=== PATIENT | male | born 1945 | race Caucasian/White ===

== ENCOUNTER 2016-02-14 22:41 | Inpatient (IN) | payer OTHER ==
--- NOTE | 2016-02-14 23:17 | PROVIDER DOCUMENTATION ---
HPI-Cardiac General - General Source: patient - History of Present Illness-Cardiac Quality of Pain: reports: none Onset/Duration: this morning Timing: still present Context/Activities at Onset: reports: none Modifying Factors: improves with: nothing Palpitation Quality: fast/pounding heart beat History of arrythmia: reports: none Recent use of:: reports: no stimulants Nitro Today/Relief: reports: no nitro taken today Aspirin Treatment Today: reports: no aspirin today Prior Chest Pain/Cardiac Workup: reports: stress test Associated Symptoms: reports: denies symptoms Similar Symptoms Previously?: No Recently Seen Here or By Another Healthcare Provider: Yes <Julio C Castillo - Last Filed: 02/15/16 01:54> <Eliseo Epperson - Last Filed: 02/15/16 08:57> - General Chief Complaint: Palpitations Stated Complaint: HIGH BLOOD PRESSURE,RAPID HR Time Seen by Provider: 02/14/16 22:45 Allergies/Adverse Reactions: Patient Allergies Allergy/AdvReac Type Severity Reaction Status Date / Time No Known Allergies Allergy Verified 02/14/16 22:54 - History of Present Illness-Cardiac Nature of Presenting Problem: 70 y/o Wm presents to the ED with his heart racing since 10am this morning. Pt said he was at his desk when he felt it. He checked his BP at that time which was normal but his Heart rate was 138. This evening after getting home from [facility] he checked his pressure again and it was high this time with HR of 133 and decided he need to come to the ED. Pt denies any pain and is not SOB. ( Julio C Castillo) Review of Systems - Adult - REVIEW OF SYSTEMS - ADULT Constitutional: denies: chills, fever Eyes: reports: no symptoms reported Ears, Nose, Mouth & Throat: reports: no symptoms reported Cardiovascular: reports: edema, palpitations. denies: chest pain, orthopnea, syncope Respiratory: denies: chronic cough, shortness of breath, wheezing Gastrointestinal: denies: nausea, vomiting Genitourinary: reports: no symptoms reported Musculoskeletal: reports: no symptoms reported Integumentary: reports: no symptoms reported Neurological: reports: no symptoms reported Psychiatric: reports: no symptoms reported Endocrine: reports: no symptoms reported Hematologic/Lymphatic: reports: no symptoms reported Allergic/Immunologic: reports: no symptoms reported All Other Systems: Reviewed and Negative <Julio C Castillo - Last Filed: 02/15/16 01:54> Past History - Adult - PAST MEDICAL HISTORY-ADULT Review of Records: reports: Old Records Reviewed, Nursing Assessment Review, Medications Reviewed - SOCIAL HISTORY Smoking: non-smoker Substance Use: alcohol Alcohol Use Frequency: occasionally Living Situation: family Occupation: Retired <Julio C Castillo Last Filed: 02/15/16 01:54> Physical Exam-General - PHYSICAL EXAM-ADULT Initial Vital Signs Reviewed: Yes - CONSTITUTIONAL General Appearance: appears well, alert, no apparent distress - EYES Eyes: PERRL/EOMI, pink conjunctivae - HEAD, EARS, NOSE, MOUTH & THROAT HENMT: moist mucous membranes, normal ENT inspection, TMs normal, pharynx normal - NECK Neck: non-tender, full range of motion, supple - RESPIRATORY Respiratory: normal breath sounds, no pleuratic chest pain, no respiratory distress, no accessory muscle use - CARDIOVASCULAR Cardiovascular: normal peripheral pulses, tachycardia, gallop/S4 - GASTROINTESTINAL (ABDOMEN) Abdominal Exam: normal bowel sounds, non tender, soft - MUSCULOSKELETAL Back Exam: normal inspection, no CVA tenderness, no vertebral tenderness Extremity: normal range of motion, non-tender, normal gait, pedal edema (2+) - SKIN Integumentary: normal color, normal turgor, warm/dry - NEUROLOGIC Neurologic: grossly normal, no motor/sensory deficits - PSYCHIATRIC Psych/Mental Status: normal mood/affect, normal thought content, normal thought process, oriented x 3 <Julio C Castillo Last Filed: 02/15/16 01:54> Progress - EKG 1 Time of EKG reading by physician:: 01:32 EKG Read and Signed by:: Kam Garcia EKG Interpretation (*Must complete 3 of following elements*): Abnormal Rate: 132 Rhythm: Atrial flutter with 2:1 AV conduction QRS: RBB Comments: Inferior infarct, age undetermined, T wave abnormality, - CONSULTS/PCP/HOSPITALIST Notification #1 *Consult/PCP/Hospitalist*: Dr Silver Time Discussed: :54 Reason/Comments: plan of treatment Consult Disposition: other (treat with a cardizem drip) <Julio C Castillo Last Filed: 02/15/16 01:54> - REASSESSMENT Reassessment #1 Time Reassessed: 08:56 Status: improving (Pt is stable and admit to Dr. Griffiths) - CONSULTS/PCP/HOSPITALIST Notification Time Discussed: 08:57 Reason/Comments: Dr. Griffiths Consult Disposition: Admit <Eliseo Epperson X - Last Filed: 02/15/16 08:57> - PLAN OF CARE/RESULTS Progress/Plan/Lab Results: Orders Category Date Time Status CHEST-2 VIEWS [RAD] Stat Exams 02/14/16 23:01 Taken CBC WITH DIFF [HEME] Stat Lab 02/14/16 23:22 Completed CK PROFILE [SP CHEM] Stat Lab 02/14/16 23:22 Completed COMPREHENSIVE METABOLIC PANEL [CHEM] Stat Lab 02/14/16 23:22 Completed D-DIMER PL [COAG] Stat Lab 02/14/16 23:22 Completed PRO B-NATRIURETIC PEPTIDE Stat Lab 02/14/16 23:22 Completed TROPONIN T Stat Lab 02/14/16 23:22 Completed TSH Stat Lab 02/14/16 23:[address] W/POSS RFLX CULT [URINALYSIS] Stat Lab 02/14/16 23:22 Completed 0.9% Sodium Chloride Inj [Ns] 1,000 ml Med 02/15/16 00:53 Discontinued .ROUTE As Directed Metoprolol [Lopressor] Med 02/15/16 00:40 Discontinued 5 mg .ROUTE .STK-MED ONE Metoprolol [Lopressor] Med 02/15/16 00:02 Discontinued 5 mg IV NOW ONE Metoprolol [Lopressor] Med 02/15/16 00:02 Discontinued 5 mg IV NOW ONE EKG [EKG] Routine Ther 02/14/16 23:00 Draft Vital Signs Temp Pulse Resp BP Pulse Ox 02/15/16 01:11 98.4 F 120 H 20 117/78 100 02/14/16 22:55 134 H 20 148/109 99 No Known Allergies Allergy (Verified 02/14/16 22:54) Laboratory 02/14/16 02/14/16 02/14/16 23:22 23:22 23:22 WBC 6.97 RBC 4.52 L Hgb 14.1 Hct 42.5 MCV 94.0 MCH 31.2 H MCHC 33.2 RDW Std Deviation 13.3 Plt Count 172 MPV 11.6 H Immature Gran % (Auto) 0.3 Neut % (Auto) 56.5 Lymph % (Auto) 25.4 Borden % (Auto) 14.1 H Eos % (Auto) 3.4 Baso % (Auto) 0.3 Immature Gran # (Auto) 0.02 Neut # (Auto) 3.94 Lymph # (Auto) 1.77 Borden # (Auto) 0.98 H Eos # (Auto) 0.24 Baso # (Auto) 0.02 D-Dimer 0.40 Sodium Potassium Chloride Carbon Dioxide Anion Gap BUN Creatinine Estimated GFR/1.73 m2 BUN/Creatinine Ratio Glucose Calculated Osmolality Calcium Total Bilirubin AST ALT Alkaline Phosphatase Creatine Kinase Troponin T Cys-Q-Ftvtkpuneql Pept Total Protein Albumin Globulin Albumin/Globulin Ratio TSH Urine Source CLEAN CATCH Urine Color YELLOW Urine Clarity CLEAR Urine pH 5.0 Ur Specific Carpenter 1.015 Urine Protein 1+(30 mg/dL) A Urine Ketones NEGATIVE Urine Blood NEGATIVE Urine Nitrite NEGATIVE Urine Bilirubin NEGATIVE Urine Urobilinogen NORMAL Urine Microscopic RBC <10 Urine WBC NEGATIVE Urine Microscopic WBC <10 Ur Epithelial Cells <10 Urine Bacteria NEGATIVE Urine Glucose NEGATIVE 02/14/16 02/14/16 02/14/16 23:22 23:22 23:22 WBC RBC Hgb Hct MCV MCH MCHC RDW Std Deviation Plt Count MPV Immature Gran % (Auto) Neut % (Auto) Lymph % (Auto) Borden % (Auto) Eos % (Auto) Baso % (Auto) Immature Gran # (Auto) Neut # (Auto) Lymph # (Auto) Borden # (Auto) Eos # (Auto) Baso # (Auto) D-Dimer Sodium Potassium Chloride Carbon Dioxide Anion Gap BUN Creatinine Estimated GFR/1.73 m2 BUN/Creatinine Ratio Glucose Calculated Osmolality Calcium Total Bilirubin AST ALT Alkaline Phosphatase Creatine Kinase Troponin T < 0.010 Sei-E-Theezjdmzzo Pept 913 H Total Protein Albumin Globulin Albumin/Globulin Ratio TSH 3.24 Urine Source Urine Color Urine Clarity Urine pH Ur Specific Carpenter Urine Protein Urine Ketones Urine Blood Urine Nitrite Urine Bilirubin Urine Urobilinogen Urine Microscopic RBC Urine WBC Urine Microscopic WBC Ur Epithelial Cells Urine Bacteria Urine Glucose 02/14/16 23:22 WBC RBC Hgb Hct MCV MCH MCHC RDW Std Deviation Plt Count MPV Immature Gran % (Auto) Neut % (Auto) Lymph % (Auto) Borden % (Auto) Eos % (Auto) Baso % (Auto) Immature Gran # (Auto) Neut # (Auto) Lymph # (Auto) Borden # (Auto) Eos # (Auto) Baso # (Auto) D-Dimer Sodium 139 Potassium 3.8 Chloride 102 Carbon Dioxide 27 Anion Gap 10 BUN 13 Creatinine 1.1 Estimated GFR/1.73 m2 > 60 BUN/Creatinine Ratio 12 Glucose 98 Calculated Osmolality 278 Calcium 9.0 Total Bilirubin 0.30 AST 18 ALT 14 Alkaline Phosphatase 100 Creatine Kinase 70 Troponin T Dit-U-Wffvimjrdni Pept Total Protein 7.6 Albumin 4.5 Globulin 3.0 Albumin/Globulin Ratio 1.0 TSH Urine Source Urine Color Urine Clarity Urine pH Ur Specific Carpenter Urine Protein Urine Ketones Urine Blood Urine Nitrite Urine Bilirubin Urine Urobilinogen Urine Microscopic RBC Urine WBC Urine Microscopic WBC Ur Epithelial Cells Urine Bacteria Urine Glucose (Julio C Castillo) Abnormal Lab Results 02/14/16 02/14/16 02/14/16 23:22 23:22 23:22 WBC RBC Hgb Hct MCV MCH MCHC RDW Std Deviation Plt Count MPV Immature Gran % (Auto) Neut % (Auto) Lymph % (Auto) Borden % (Auto) Eos % (Auto) Baso % (Auto) Immature Gran # (Auto) Neut # (Auto) Lymph # (Auto) Borden # (Auto) Eos # (Auto) Baso # (Auto) D-Dimer Sodium 139 Potassium 3.8 Chloride 102 Carbon Dioxide 27 Anion Gap 10 BUN 13 Creatinine 1.1 Estimated GFR/1.73 m2 > 60 BUN/Creatinine Ratio 12 Glucose 98 Calculated Osmolality 278 Calcium 9.0 Total Bilirubin 0.30 AST 18 ALT 14 Alkaline Phosphatase 100 Creatine Kinase 70 Troponin T < 0.010 Kxc-R-Awzmwiirtfz Pept 913 H Total Protein 7.6 Albumin 4.5 Globulin 3.0 Albumin/Globulin Ratio 1.0 TSH Urine Source Urine Color Urine Clarity Urine pH Ur Specific Carpenter Urine Protein Urine Ketones Urine Blood Urine Nitrite Urine Bilirubin Urine Urobilinogen Urine Microscopic RBC Urine WBC Urine Microscopic WBC Ur Epithelial Cells Urine Bacteria Urine Glucose 02/14/16 02/14/16 02/14/16 23:22 23:22 23:22 WBC 6.97 RBC 4.52 L Hgb 14.1 Hct 42.5 MCV 94.0 MCH 31.2 H MCHC 33.2 RDW Std Deviation 13.3 Plt Count 172 MPV 11.6 H Immature Gran % (Auto) 0.3 Neut % (Auto) 56.5 Lymph % (Auto) 25.4 Borden % (Auto) 14.1 H Eos % (Auto) 3.4 Baso % (Auto) 0.3 Immature Gran # (Auto) 0.02 Neut # (Auto) 3.94 Lymph # (Auto) 1.77 Borden # (Auto) 0.98 H Eos # (Auto) 0.24 Baso # (Auto) 0.02 D-Dimer 0.40 Sodium Potassium Chloride Carbon Dioxide Anion Gap BUN Creatinine Estimated GFR/1.73 m2 BUN/Creatinine Ratio Glucose Calculated Osmolality Calcium Total Bilirubin AST ALT Alkaline Phosphatase Creatine Kinase Troponin T Ozw-X-Dbfaookekix Pept Total Protein Albumin Globulin Albumin/Globulin Ratio TSH 3.24 Urine Source Urine Color Urine Clarity Urine pH Ur Specific Carpenter Urine Protein Urine Ketones Urine Blood Urine Nitrite Urine Bilirubin Urine Urobilinogen Urine Microscopic RBC Urine WBC Urine Microscopic WBC Ur Epithelial Cells Urine Bacteria Urine Glucose 02/14/16 23:22 WBC RBC Hgb Hct MCV MCH MCHC RDW Std Deviation Plt Count MPV Immature Gran % (Auto) Neut % (Auto) Lymph % (Auto) Borden % (Auto) Eos % (Auto) Baso % (Auto) Immature Gran # (Auto) Neut # (Auto) Lymph # (Auto) Borden # (Auto) Eos # (Auto) Baso # (Auto) D-Dimer Sodium Potassium Chloride Carbon Dioxide Anion Gap BUN Creatinine Estimated GFR/1.73 m2 BUN/Creatinine Ratio Glucose Calculated Osmolality Calcium Total Bilirubin AST ALT Alkaline Phosphatase Creatine Kinase Troponin T Heu-I-Ulxinaicfso Pept Total Protein Albumin Globulin Albumin/Globulin Ratio TSH Urine Source CLEAN CATCH Urine Color YELLOW Urine Clarity CLEAR Urine pH 5.0 Ur Specific Carpenter 1.015 Urine Protein 1+(30 mg/dL) A Urine Ketones NEGATIVE Urine Blood NEGATIVE Urine Nitrite NEGATIVE Urine Bilirubin NEGATIVE Urine Urobilinogen NORMAL Urine Microscopic RBC <10 Urine WBC NEGATIVE Urine Microscopic WBC <10 Ur Epithelial Cells <10 Urine Bacteria NEGATIVE Urine Glucose NEGATIVE Orders Category Date Time Status CHEST-2 VIEWS [RAD] Stat Exams 02/14/16 23:01 Taken CBC WITH DIFF [HEME] Stat Lab 02/14/16 23:22 Completed CK PROFILE [SP CHEM] Stat Lab 02/14/16 23:22 Completed COMPREHENSIVE METABOLIC PANEL [CHEM] Stat Lab 02/14/16 23:22 Completed D-DIMER PL [COAG] Stat Lab 02/14/16 23:22 Completed PRO B-NATRIURETIC PEPTIDE Stat Lab 02/14/16 23:22 Completed TROPONIN T Stat Lab 02/14/16 23:22 Completed TSH Stat Lab 02/14/16 23:[address] W/POSS RFLX CULT [URINALYSIS] Stat Lab 02/14/16 23:22 Completed 0.9% Sodium Chloride Inj [Ns] 1,000 ml Med 02/15/16 00:53 Discontinued .ROUTE As Directed 0.9% Sodium Chloride Inj [Ns] 500 ml Med 02/15/16 05:49 Discontinued .ROUTE As Directed Diltiazem 100 mg/Ns [Cardizem 100 mg/Ns] 100 ml Med 02/15/16 06:15 Active IV 5 mg/hr Diltiazem 100 mg/Ns [Cardizem 100 mg/Ns] 100 ml Med 02/15/16 03:15 Discontinued IV Per Protocol Diltiazem [Cardizem] Med 02/15/16 03:08 Discontinued 10 mg IV NOW ONE Metoprolol [Lopressor] Med 02/15/16 00:40 Discontinued 5 mg .ROUTE .STK-MED ONE Metoprolol [Lopressor] Med 02/15/16 00:02 Discontinued 5 mg IV NOW ONE Metoprolol [Lopressor] Med 02/15/16 00:02 Discontinued 5 mg IV NOW ONE EKG [EKG] Routine Ther 02/14/16 23:00 Draft Vital Signs Temp Pulse Resp BP Pulse Ox 02/15/16 07:14 71 17 125/68 96 02/15/16 06:28 90 19 137/95 96 02/15/16 05:05 94 H 21 123/98 96 02/15/16 04:53 65 16 117/67 96 02/15/16 03:19 94 H 18 142/108 98 02/15/16 01:11 98.4 F 120 H 20 117/78 100 02/14/16 22:55 134 H 20 148/109 99 No Known Allergies Allergy (Verified 02/14/16 22:54) Laboratory 02/14/16 02/14/16 02/14/16 23:22 23:22 23:22 WBC 6.97 RBC 4.52 L Hgb 14.1 Hct 42.5 MCV 94.0 MCH 31.2 H MCHC 33.2 RDW Std Deviation 13.3 Plt Count 172 MPV 11.6 H Immature Gran % (Auto) 0.3 Neut % (Auto) 56.5 Lymph % (Auto) 25.4 Borden % (Auto) 14.1 H Eos % (Auto) 3.4 Baso % (Auto) 0.3 Immature Gran # (Auto) 0.02 Neut # (Auto) 3.94 Lymph # (Auto) 1.77 Borden # (Auto) 0.98 H Eos # (Auto) 0.24 Baso # (Auto) 0.02 D-Dimer 0.40 Sodium Potassium Chloride Carbon Dioxide Anion Gap BUN Creatinine Estimated GFR/1.73 m2 BUN/Creatinine Ratio Glucose Calculated Osmolality Calcium Total Bilirubin AST ALT Alkaline Phosphatase Creatine Kinase Troponin T Qfn-W-Xtvleokqgvz Pept Total Protein Albumin Globulin Albumin/Globulin Ratio TSH Urine Source CLEAN CATCH Urine Color YELLOW Urine Clarity CLEAR Urine pH 5.0 Ur Specific Carpenter 1.015 Urine Protein 1+(30 mg/dL) A Urine Ketones NEGATIVE Urine Blood NEGATIVE Urine Nitrite NEGATIVE Urine Bilirubin NEGATIVE Urine Urobilinogen NORMAL Urine Microscopic RBC <10 Urine WBC NEGATIVE Urine Microscopic WBC <10 Ur Epithelial Cells <10 Urine Bacteria NEGATIVE Urine Glucose NEGATIVE 02/14/16 02/14/16 02/14/16 23:22 23:22 23:22 WBC RBC Hgb Hct MCV MCH MCHC RDW Std Deviation Plt Count MPV Immature Gran % (Auto) Neut % (Auto) Lymph % (Auto) Borden % (Auto) Eos % (Auto) Baso % (Auto) Immature Gran # (Auto) Neut # (Auto) Lymph # (Auto) Borden # (Auto) Eos # (Auto) Baso # (Auto) D-Dimer Sodium Potassium Chloride Carbon Dioxide Anion Gap BUN Creatinine Estimated GFR/1.73 m2 BUN/Creatinine Ratio Glucose Calculated Osmolality Calcium Total Bilirubin AST ALT Alkaline Phosphatase Creatine Kinase Troponin T < 0.010 Kms-H-Vvpbmxendrk Pept 913 H Total Protein Albumin Globulin Albumin/Globulin Ratio TSH 3.24 Urine Source Urine Color Urine Clarity Urine pH Ur Specific Carpenter Urine Protein Urine Ketones Urine Blood Urine Nitrite Urine Bilirubin Urine Urobilinogen Urine Microscopic RBC Urine WBC Urine Microscopic WBC Ur Epithelial Cells Urine Bacteria Urine Glucose 02/14/16 23:22 WBC RBC Hgb Hct MCV MCH MCHC RDW Std Deviation Plt Count MPV Immature Gran % (Auto) Neut % (Auto) Lymph % (Auto) Borden % (Auto) Eos % (Auto) Baso % (Auto) Immature Gran # (Auto) Neut # (Auto) Lymph # (Auto) Borden # (Auto) Eos # (Auto) Baso # (Auto) D-Dimer Sodium 139 Potassium 3.8 Chloride 102 Carbon Dioxide 27 Anion Gap 10 BUN 13 Creatinine 1.1 Estimated GFR/1.73 m2 > 60 BUN/Creatinine Ratio 12 Glucose 98 Calculated Osmolality 278 Calcium 9.0 Total Bilirubin 0.30 AST 18 ALT 14 Alkaline Phosphatase 100 Creatine Kinase 70 Troponin T Nev-S-Vsmujxfusht Pept Total Protein 7.6 Albumin 4.5 Globulin 3.0 Albumin/Globulin Ratio 1.0 TSH Urine Source Urine Color Urine Clarity Urine pH Ur Specific Carpenter Urine Protein Urine Ketones Urine Blood Urine Nitrite Urine Bilirubin Urine Urobilinogen Urine Microscopic RBC Urine WBC Urine Microscopic WBC Ur Epithelial Cells Urine Bacteria Urine Glucose Orders Category Date Time Status CHEST-2 VIEWS [RAD] Stat Exams 02/14/16 23:01 Taken CBC WITH DIFF [HEME] Stat Lab 02/14/16 23:22 Completed CK PROFILE [SP CHEM] Stat Lab 02/14/16 23:22 Completed COMPREHENSIVE METABOLIC PANEL [CHEM] Stat Lab 02/14/16 23:22 Completed D-DIMER PL [COAG] Stat Lab 02/14/16 23:22 Completed PRO B-NATRIURETIC PEPTIDE Stat Lab 02/14/16 23:22 Completed TROPONIN T Stat Lab 02/14/16 23:22 Completed TSH Stat Lab 02/14/16 23:[address] W/POSS RFLX CULT [URINALYSIS] Stat Lab 02/14/16 23:22 Completed 0.9% Sodium Chloride Inj [Ns] 1,000 ml Med 02/15/16 00:53 Discontinued .ROUTE As Directed 0.9% Sodium Chloride Inj [Ns] 500 ml Med 02/15/16 05:49 Discontinued .ROUTE As Directed Diltiazem 100 mg/Ns [Cardizem 100 mg/Ns] 100 ml Med 02/15/16 06:15 Active IV 5 mg/hr Diltiazem 100 mg/Ns [Cardizem 100 mg/Ns] 100 ml Med 02/15/16 03:15 Discontinued IV Per Protocol Diltiazem [Cardizem] Med 02/15/16 03:08 Discontinued 10 mg IV NOW ONE Metoprolol [Lopressor] Med 02/15/16 00:40 Discontinued 5 mg .ROUTE .STK-MED ONE Metoprolol [Lopressor] Med 02/15/16 00:02 Discontinued 5 mg IV NOW ONE Metoprolol [Lopressor] Med 02/15/16 00:02 Discontinued 5 mg IV NOW ONE EKG [EKG] Routine Ther 02/14/16 23:00 Draft (Eliseo Epperson) Departure - Departure Time of Disposition Order: 01:56 Certified Medical Emergency: Emergent <Julio C Castillo - Last Filed: 02/15/16 01:54> - Departure Time of Disposition Order: 08:57 Certified Medical Emergency: Emergent <Eliseo Epperson - Last Filed: 02/15/16 08:57> - Departure DIAGNOSIS: Atrial flutter Qualifiers: Atrial flutter type: unspecified Qualified Code(s): I48.92 - Unspecified atrial flutter Disposition: ADMITTED INPATIENT 09 Condition: Stable Referrals: Shravan Dozier MD [Primary Care Provider] - Attestation - Scribe Verification/Attestation Scribe:: Julio C Castillo Acting as Scribe for:: Kam Garcia Scribe documention review:: This chart was documented by a scribe and accurately reflects the service the provider performed and the decisions made by the provider. <Julio C Castillo - Last Filed: 02/15/16 01:54> Physician Attestation
[2016-02-14 23:29] LABS: MANUAL DIFF NEEDED? NO
--- NOTE | 2016-02-14 23:41 | EKG Report ---
Test Performed on : 02/14/2016 11:20:46 PM Test Reason : emboli Blood Pressure : / mmHG Vent. Rate : 132 BPM Atrial Rate : 264 BPM P-R Int : 000 ms QRS Dur : 134 ms QT Int : 306 ms P-R-T Axes : 247 -13 -82 degrees QTc Int : 453 ms Atrial flutter. with 2:1 AV conduction. Right bundle branch block Inferior infarct , age undetermined T wave abnormality, consider lateral ischemia Abnormal ECG No previous ECGs available Unconfirmed Result
[2016-02-14 23:42] LABS: URINE CULTURE PL NEEDED? NO; URINE SOURCE CLEAN CATCH
[2016-02-15] MEDS ORDERED: LOPRESSOR IV ONE ×2 (00:02)
[2016-02-15 00:03] LABS: BILIRUBIN URINE NEGATIVE (NEGATIVE); CLARITY CLEAR (CLEAR); COLOR YELLOW; GLUCOSE URINE NEGATIVE (NEGATIVE); URINE EPITHELIAL CELLS <10 /HPF (<10); URINE RBC <10 /HPF (<10); URINE WBC <10 /HPF (<10)
[2016-02-15 00:04] LABS: BLOOD URINE NEGATIVE (NEGATIVE); LEUKOCYTES URINE NEGATIVE (NEGATIVE); NITRITE URINE NEGATIVE (NEGATIVE); PROTEIN URINE 1+(30 mg/dL) mg/dL (NEGATIVE); SP GRAVITY URINE 1.015; UROBILINOGEN URINE NORMAL
[2016-02-15 00:09] LABS: BASO% 0.3 % (0.0-0.8); EOS# 0.24 X1000 (0.0-0.7); EOS% 3.4 % (0.0-10.0); HEMATOCRIT 42.5 % (42.0-52.0); HEMOGLOBIN 14.1 g/dL (14.0-18.0); IMM GRAN# 0.02 X1000 (0.0-0.04); IMM GRAN% 0.3 % (0.0-0.5); LYMPH# 1.77 X1000 (1.2-3.4); LYMPH% 25.4 % (20.5-51.1); MCH 31.2 PG (27-31); MCHC 33.2 g/dL (33-37); MONO# 0.98 X1000 (0.11-0.59); MONO% 14.1 % (1.7-9.3); MPV 11.6 FL (7.4-10.4); NEUT% 56.5 % (42.2-75.2); PLT 172 X1000 (130-400); RBC 4.52 XMIL (4.7-6.1)
[2016-02-15 00:23] LABS: AGAP 10; ALBUMIN 4.5 g/dL (3.5-5.0); ALKALINE PHOSPHATASE 100 U/L (32-122); BUN 13 mg/dL (8-22); CHLORIDE 102 mmol/L (98-107); CK PROFILE 70 U/L (24-204); COSMO 278; GOT 18 U/L (10-34); GPT 14 U/L (10-44); POTASSIUM 3.8 mmol/L (3.5-5.1); SODIUM 139 mmol/L (136-145); TCO2 27 mmol/L (25-35); TOTAL PROTEIN 7.6 g/dL (6.3-8.3)
[2016-02-15] MEDS ORDERED: LOPRESSOR ONE (00:40)
[2016-02-15] MEDS ORDERED: NS 1,000 ML ONE (00:53)
[2016-02-15] MEDS ORDERED: CARDIZEM IV ONE (03:08)
[2016-02-15] MEDS ORDERED: CARDIZEM 100 MG/NS 100 ML IV SCH ×2 (03:15→06:15)
[2016-02-15] MEDS ORDERED: NS 500 ML ONE (05:49)
--- NOTE | 2016-02-15 09:34 | Diag Imaging Result Document ---
PROCEDURE NAME: CHEST-2 VIEWS - 02/14/2016 CHEST X-RAY, 2 VIEWS: COMPARISON: None. FINDINGS: There is hyperexpansion of the lungs with flattening of the diaphragms compatible with COPD. There are CABG changes. Heart size is top normal. Pulmonary vascularity is normal. No focal infiltrates, pneumothorax, or pleural effusion. IMPRESSION: COPD. No acute disease.
[2016-02-15] MEDS ORDERED: FLUZONE QUAD 2016-2017 SYRINGE IM ONE (15:30)
[2016-02-15] MEDS: CARDIZEM 100 MG/NS 100 ML IV SCH (20:52)
[2016-02-16] MEDS: CARDIZEM 100 MG/NS 100 ML IV SCH ×2 (04:33→11:53)
[2016-02-16 06:29] LABS: HEMATOCRIT 40.1 % (42.0-52.0); HEMOGLOBIN 13.2 g/dL (14.0-18.0); MCH 31.1 PG (27-31); MCHC 32.9 g/dL (33-37); MCV 94.6 FL (81-99); MPV 11.1 FL (7.4-10.4); RBC 4.24 XMIL (4.7-6.1)
[2016-02-16 07:06] LABS: AGAP 5; ALBUMIN 3.8 g/dL (3.5-5.0); ALKALINE PHOSPHATASE 77 U/L (32-122); BUN 17 mg/dL (8-22); CALCIUM 8.9 mg/dL (8.8-10.2); CHLORIDE 106 mmol/L (98-107); COSMO 280; GOT 17 U/L (10-34); GPT 11 U/L (10-44); HDL 19 mg/dL (35-55); LDL 97 mg/dL; MAGNESIUM 1.9 mg/dL (1.5-2.7); POTASSIUM 4.2 mmol/L (3.5-5.1); SODIUM 139 mmol/L (136-145); TCO2 28 mmol/L (25-35); TOTAL PROTEIN 6.7 g/dL (6.3-8.3); TRIGLYCERIDES 201 mg/dL (39-160); VLDL 40 mg/dL
--- NOTE | 2016-02-16 12:02 | PROGRESS NOTE ---
DATE: 02/16/2016 SUBJECTIVE: The patient states he feels fine, he slept well. Denies any chest pain. Does have palpitations, but denies any dysuria on exertion. Denies any GI or issues. OBJECTIVE: Vital Signs: On physical examination, temperature 98.0 degrees, pulse 108-134, respiratory 18, BP 111/66 to 96/68, satting 94% on room air. General: The patient is well developed, well nourished. Currently in no respiratory distress. He is awake, alert, oriented. Neck: Supple. CV: Irregular rate and irregular rhythm. HEENT: Normocephalic, atraumatic. Chest: Relatively clear. Abdomen: Soft, nondistended. Extremities: Moves all extremities. Neurologic: No changes. LABS: Reviewed. The LDL at 97. First 2 sets of cardiac enzymes are negative. CMP is normal. CBC is normal. ASSESSMENT: 1. Atrial fibrillation with rapid ventricular response. 2. Known coronary artery disease. Patient had a 5-vessel bypass some years ago. He has not had a stress test recently. PLAN: We will continue patient on Cardizem IV. We will consult cardiology as patient certainly will need further workup.
[2016-02-16] MEDS ORDERED: ELIQUIS PO SCH (13:00)
--- NOTE | 2016-02-16 13:24 | CONSULTATION ---
DATE OF CONSULTATION: 02/16/2016 REASON FOR CONSULTATION: Cardiology was consulted for atrial flutter. HISTORY OF PRESENT ILLNESS: Mr. Sam Vital is a 70-year-old gentleman, who had palpitations a couple of days back, came to the emergency room, was noted to be in atrial flutter with rapid ventricular rate. He was started on a Cardizem drip. The patient prior to this has not had atrial flutter. He does not complain of having chest pain suggestive of angina. There is no dizziness or syncope. He has known coronary artery disease, status post coronary artery bypass grafting in [place] in 2002. He is normally followed up at the [facility] in [place], [place] 2 years back. He had a stress test and echocardiogram done there, which per patient were normal, and he has been taking his medications regularly. There is no orthopnea or paroxysmal nocturnal dyspnea. He has dyspnea on exertion, which is at best mild. REVIEW OF SYSTEMS: General: A 14-point review of system was done. GI System : There is no history of nausea, vomiting, diarrhea. There is no history of melena. Central nervous system: No focal weakness to suggest a CVATI. System: There is no dysuria or hematuria. PAST MEDICAL HISTORY: 1. Coronary artery disease, status post coronary artery bypass grafting at [place] in 2002. 2. Hypertension. 3. Hypertriglyceridemia. HOME MEDICATIONS: 1. Lisinopril 40. 2. Aspirin. 3. Gemfibrozil which he does not take. HABITS: He does not smoke. There is no history of alcohol abuse. PHYSICAL EXAMINATION: Vital Signs: Blood pressure was 120/77. Cardiovascular System: Normal jugular venous pressure. There is no thyromegaly. No carotid bruit. First and second heart sounds heard. There is no S3 gallop. Respiratory System: Normal air entry. There are no crepitations or rhonchi. Abdomen: Soft, nontender. There was no guarding or rigidity. Bowel sounds were heard. Central nervous system: Alert and was moving all 4 extremities. Extremities: Examination of extremities revealed no pedal edema. HEENT: Atraumatic, normocephalic. Pupils were equal and reacting to light. DIAGNOSTIC EXAMINATION: Electrocardiogram done today: He is on a Cardizem drip , revealed atrial flutter. Chest x-ray with no acute airspace disease. LABORATORY EXAMINATION: Revealed sodium 139, potassium 4.2, BUN 17, creatinine 1.1. Magnesium 1.9. Cardiac enzyme negative. ProBNP 913. Hemoglobin 13, hematocrit 40, platelet count of 163, white count 173. ASSESSMENT: Mr. Sam Vital is a 70-year-old gentleman, admitted with atrial flutter. His rate is under control with Cardizem oral. He has had a coronary artery bypass grafting in 2002 and has history of hypertension. He has elevated CHADS-VASc score. He is allergic to IVP dye and shellfish allergies. He is allergic to penicillin as well.He has had CABG and hypertension. Echocardiogram revelaed a dilated lv with EF 30 %. PLAN: 1. We will discontinue the Cardizem drip and put him on Cardizem CD 180 mg a day. Discontinue atenolol 25 and start coreg 6.25 mg BID. Given His LV dysfunction and hypertension will decarese his lisinopril to 20 mg as we are adding cardizem for atrial flutter. If his rate is under control, we will discharge him home in the morning and plan for out patient cardioversion and Evaluate with a stress test as well to Assess for ischemia. His stated that the stress test and LV function were unremarkable 2 years ago , which were done in [place]. She is aware of the Lv dysfuntion we noted today. We will request records. 2. For stroke prophylaxis, we will start him on Eliquis 5 mg twice daily. 3, For hypertension, blood pressure is under control. I have made made changes to his medication as above 6. He does not take his gemfibrozil regularly; I would advise him to continue with this medication. 7. He takes niacin and ranitidine for GERD. I have not made any changes. Thank you for the consult. We will follow hospital course. [facility] HOSPITALSpeedy
[2016-02-16] MEDS: CARDIZEM CD PO SCH (14:45)
--- NOTE | 2016-02-16 16:07 | ECHO REPORT ---
ORDER DATE: 02/16/2016 INTERPRETING PHYSICIAN: Dr. Timothy Rodriguez ECHOCARDIOGRAPHIC MEASUREMENTS: Interventricular septum: 1.0 cm. Left ventricular posterior wall: 1.0 cm. Diastolic diameter: 6 cm. Left atrium: 4.4 cm. Aortic root: 3.8 cm. SUMMARY OF THE 2-DIMENSIONAL IMAGIN. Dilated left ventricle with reduced systolic function. Estimated ejection fraction of 30%. There is global hypokinesis. The ejection fraction of 35% in some views. 2. Pulmonic valve was normal. There is trace pulmonary regurgitation. 3. Aortic valve leaflets are trileaflet. There is left atrial enlargement. 4. Peak velocity across the aortic valve less than 2 m/sec. There is no aortic stenosis or regurgitation. 5. There is mild mitral regurgitation. Mild tricuspid regurgitation. Peak velocity across the tricuspid valve was 2.5 m/sec. 6. There is no pericardial effusion or obvious intracardiac mass or thrombus seen. Atrial flutter baseline was noted.
--- NOTE | 2016-02-16 16:56 | HISTORY AND PHYSICAL ---
PRIMARY CARE PHYSICIAN: Shravan Dozier MD. CHIEF COMPLAINT: Racing heart rate that began around 10 a.m. on the morning of arrival. HISTORY OF PRESENTING ILLNESS: This is a 70-year-old male, who states he was sitting at his desk at work around 10 a.m. yesterday morning when he began feeling his heart race. Stated that he took his blood pressure and it was normal at the time but his heart rate was 138. That evening after getting home from [employer], he checked his pressure again and it was high, but unsure of what the reading was with a heart rate of 133. So he came into the emergency room for further evaluation and treatment. He was noted on arrival on his EKG to have atrial flutter at 132. Laboratory data was otherwise unremarkable. He was given a 10 mg IV of Cardizem x1 in the emergency room with little change in his heart rate, so he was admitted to the intensive care unit, placed on a Cardizem drip for further evaluation and treatment. PAST MEDICAL HISTORY: Coronary artery disease, hypertension, and hypertriglyceridemia. PAST SURGICAL HISTORY: CABG, 5 vessel in 2002. FAMILY HISTORY: Noncontributory. SOCIAL HISTORY: He currently lives with family. Denied any tobacco. States he drinks alcohol occasionally and no illicit drug use. ALLERGIES: To shellfish and penicillin. HOME MEDICATIONS: He takes cyclobenzaprine 5 mg p.o. t.i.d. p.r.n. Lisinopril 40 mg p.o. daily is being held, atenolol 25 mg p.o. daily, Lasix 20 mg p.o. daily. Niacin 2000 mg p.o. at bedtime, and Zantac 300 mg p.o. b.i.d. LABORATORY DATA: Showed a white blood cell count of 6.97, hemoglobin 14.1, hematocrit 42.5, platelets 172. D-dimer of 0.40. Sodium of 139, potassium 3.8, chloride 102, CO2 of 27, BUN of 13, creatinine 1.1. Glucose 98. Creatine kinase was 70 with a troponin of less than 0.010. Pro BMP of 913. Urinalysis was negative. EKG on arrival showed atrial flutter at 132. REVIEW OF SYSTEMS: He denied any fever, chills, blurred vision, dizziness. He denied any chest pain, described it more as palpitations. Denied any coughing or shortness of breath, constipation, diarrhea, burning or hurting with urination. PHYSICAL EXAMINATION: VITAL SIGNS: On arrival, had a temperature of 98.4, pulse was 134, respirations 20 with a blood pressure of 148/109, saturating 99% on room air. His rate was back to a controlled rhythm once he arrived to the intensive care unit and currently appears to be in the mid to lower 90s. GENERAL: This is a 70-year-old male who is lying in the bed, and answers questions appropriately. HEENT: Normocephalic and atraumatic. Pupils are equal, round, reactive to light. Extraocular movements are intact. Oropharynx and nares are clear. NECK: Supple. LUNGS: Clear to auscultation bilaterally with equal lung expansion and chest wall movement. HEART: With regular rate and rhythm. No murmurs, rubs or gallops. He is noted to be tachycardic in the 130s when he arrived, but upon assessment in ICU he was in a controlled rhythm. ABDOMEN: Soft, nontender, nondistended. Bowel sounds are present x4 quadrants. EXTREMITIES: There is no clubbing, cyanosis. He is noted to have 2+ pedal edema. NEUROLOGICAL: The cranial nerves 2-12 are grossly intact. ASSESSMENT: 1. Atrial fibrillation with RVR new onset. 2. Coronary artery disease, history of. 3. Hypertension. 4. Hypertriglyceridemia. PLAN: He was admitted to the intensive care unit at [facility]. Placed on a Cardizem drip. We will recheck a CBC and a BMP this a.m. We will consult Cardiology and place on a healthy heart diet. Dictated by MILES Foster for Fuad Griffiths MD
[2016-02-16] MEDS ORDERED: NEOSPORIN OINTMENT PACKET TOP PRN ×2 (19:44→20:12)
[2016-02-16] MEDS ORDERED: NEOSPORIN OINTMENT PACKET ONE (20:09)
[2016-02-16] MEDS: COREG PO SCH (20:12)
[2016-02-16] MEDS: ZANTAC PO SCH (20:13)
[2016-02-16] MEDS: ELIQUIS PO SCH (20:13)
[2016-02-16] MEDS ORDERED: NIASPAN PO SCH (21:00)
[2016-02-17] MEDS ORDERED: LASIX PO SCH (07:00)
[2016-02-17] MEDS ORDERED: PRINIVIL PO SCH (09:00)
[2016-02-17] MEDS ORDERED: ASPIRIN PO SCH (09:00)
[2016-02-17] MEDS ORDERED: TENORMIN PO SCH (09:00)
[2016-02-17] MEDS: ZANTAC PO SCH (09:37)
[2016-02-17] MEDS: CARDIZEM CD PO SCH (09:37)
[2016-02-17] MEDS: COREG PO SCH (09:38)
[2016-02-17] MEDS: ELIQUIS PO SCH (09:38)
[2016-02-17 13:01] VITALS: BP 135/71
--- NOTE | 2016-02-18 00:14 | DISCHARGE SUMMARY ---
ADMISSION DATE: 02/15/2016 DISCHARGE DATE: 02/17/2016 PRIMARY CARE PHYSICIAN: Dr. Shravan Dozier. CONSULT: Dr. Rodriguez, cardiology. ADMISSION DIAGNOSES: 1. Atrial fibrillation with rapid ventricular response new onset. 2. History of coronary artery disease. 3. Hypertension. 4. Hypertriglyceridemia. DISCHARGE DIAGNOSES: 1. Atrial fibrillation with rapid ventricular response new onset now atrial fibrillation rate controlled. 2. History of coronary artery disease. 3. Hypertension. 4. Hypertriglyceridemia. SUMMARY OF FINDINGS: This is a 70-year-old male who was sitting at his desk at work around 10 a.m. on the day of arrival when he began feeling his heart race/. Stated he took his blood pressure and that it was normal but he noted that his heart rate was 138. That afternoon after getting home from [employer] he checked his blood pressure again and stated it was high, unsure of what that reading was but he had a heart rate of 133. He continued to feel palpitations and his heart racing so he came to the emergency room for further evaluation and treatment. He was noted on his EKG to have atrial flutter at 132, was admitted to the intensive care unit, placed on a Cardizem drip. Cardiology again was consulted and saw the patient, stopped his Cardizem drip yesterday, moved him out to the floor, change him over to a Cardizem CD 180 mg p.o. daily, discontinued the atenolol 25 and started him on Coreg 6.25 mg b.i.d. An echocardiogram was obtained and showed an ejection fraction of 30% with reduced systolic function. Due to that finding with his LV dysfunction and hypertension, cardiology decreased his lisinopril to 20 mg since they were adding the Cardizem for the atrial flutter. [place] that if his rate was controlled this morning he could be discharged home and to follow up with Dr. Rodriguez on an outpatient basis for cardioversion and evaluate with a stress test to assess for any ischemia. His heart rate this a.m. is rate controlled at 70 and so it is felt that he can safely be discharged home today. He will be given a prescription for Coreg 3.125 mg, Coreg 6.25 mg p.o. b.i.d. #60 with 2 refills, he will also have a prescription for Cardizem CD 180 mg p.o. daily #30 with 2 refills, lisinopril 20 mg 1 p.o. daily #30 with 2 refills and Eliquis 5 mg p.o. b.i.d. He will continue his other home medications of Lasix 20 mg p.o. daily, niacin 2000 mg p.o. at bedtime, ranitidine 300 mg p.o. b.i.d., cyclobenzaprine 5 mg p.o. t.i.d. p.r.n. DISCHARGE INSTRUCTIONS: He will follow with his primary care physician in 1-2 weeks. He is to call Dr. Rodriguez's office on Friday to schedule his outpatient appointment and then they will discuss setting up his outpatient cardioversion and stress test at that time. All discharge instructions have been reviewed with the patient. He verbalizes understanding. A 35-minute discharge. Dictated by MILES Foster for Sim Keller MD
== END 2016-02-17 13:26 | disposition home or self-care (01) | DRG 310 ==
LOC: P.ED 22:41 → P.EDIPHOLD 02-15 09:47 → P.ICU 02-15 11:08 → P.MEDSURG 02-16 15:33
PROVIDERS: ATTEND Internal Medicine
DX: I48.91 Unspecified atrial fibrillation (principal); Z95.1 Presence of aortocoronary bypass graft; I10 Essential (primary) hypertension; I48.92 Unspecified atrial flutter; I25.10 Atherosclerotic heart disease of native coronary artery without angina pectoris; E78.1 Pure hyperglyceridemia; K21.9 Gastro-esophageal reflux disease without esophagitis; Z23 Encounter for immunization; Z79.899 Other long term (current) drug therapy; Z79.82 Long term (current) use of aspirin
CPT/HCPCS: 36415; 71020; 80053; 80061; 81001; 82550; 83735; 83880; 84443; 84484; 85025; 85027; 85379; 93005; 93306; 96365; 96366; 96375; J7030; J7040; Q2038; 99285-25